=== PATIENT | female | born 1940 | race Caucasian/White ===

== ENCOUNTER → 2019-01-26 | Outpatient (CLI) | payer MEDICARE ==
[~2019-01-26] MED LIST: ALEN70TA6 PO; FURO-93 PO; LOSA50TA14 PO; NIAC10002 PO; OMEP-110 PO; POTA10PI PO
== END | disposition home or self-care (01) ==
LOC: RAD 10:24
PROVIDERS: ATTEND Internal Medicine Gastroenterology
DX: K59.00 Constipation, unspecified (principal); R13.19 Other dysphagia; G35 Multiple sclerosis; K76.89 Other specified diseases of liver
CPT/HCPCS: 74230

== ENCOUNTER 2019-05-19 16:23 | Observation (INO) | payer MEDICARE ==
[~2019-05-19] VITALS: Ht 157.5 cm; Wt 65.3 kg
[2019-05-20 17:37] VITALS: BP 158/78
== END 2019-05-20 18:11 | disposition home or self-care (01) ==
LOC: ED 19:27 → INTOOBSV 19:45 → 5SO 19:45
PROVIDERS: ADMIT Internal Medicine; ATTEND Internal Medicine
DX: R07.89 Other chest pain (principal); N17.0 Acute kidney failure with tubular necrosis; K80.20 Calculus of gallbladder without cholecystitis without obstruction; I10 Essential (primary) hypertension; M81.0 Age-related osteoporosis without current pathological fracture; G35 Multiple sclerosis; R42 Dizziness and giddiness; K76.89 Other specified diseases of liver; Z87.891 Personal history of nicotine dependence; Z86.73 Personal history of transient ischemic attack (TIA), and cerebral infarction without residual deficits; Z87.11 Personal history of peptic ulcer disease
CPT/HCPCS: 36415; 71045; 71275; 76700; 78452; 80048; 80053; 80061; 81003; 82040; 83735; 84439; 84443; 84484; 85025; 93005; 93017; 93306; 96372; 96374; 96375; 96376; 99284; A9502; C9113; C9898; G0378; J0360; J1644; J2785; Q9967